=== PATIENT | female | born 1950 ===

== ENCOUNTER → 2018-08-12 | Outpatient (CLI) | payer OTHER ==
--- NOTE | 2018-08-20 12:37 | CPEEG ---
[f rep st] ELECTROENCEPHALOGRAM DATE OF STUDY: 08/12/2018 REFERRING PHYSICIAN: Dr. Heredia at [facility]. INTERPRETATION: Normal EEG during wakefulness and sleep. There were no potentially epileptogenic abnormalities present during the recording. REPORT: This EEG contains 10 Hz alpha activity over the posterior head regions. There was no abnormal activation at rest or during photic stimulation or hyperventilation. The patient became drowsy and fell asleep during the study. There was no abnormal activation during drowsiness, sleep, or during times of arousal. Copy requested to: Dr. Heredia Fax [phone] /[id number]/[id number]
== END ==
LOC: FCPNEURO 12:11
PROVIDERS: ATTEND Psychiatry & Neurology Neurology
DX: R55 Syncope and collapse (principal)